=== PATIENT | male | born 2005 | race Caucasian/White ===

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

== ENCOUNTER → 2024-12-13 | Emergency (ER) | payer OTHER | LOC: ER 15:37 | DX: Z02.9 Encounter for administrative examinations, unspecified (principal) ==